=== PATIENT | female | born 1990 | race Caucasian/White ===

== ENCOUNTER 2019-10-22 19:24 | Outpatient (CLI) | payer SELFPAY ==
[~2019-10-22] VITALS: Ht 165.1 cm; Wt 70.3 kg
[2019-10-22 19:50] LABS: BILIRUBIN NEGATIVE (NEGATIVE); GLUCOSE NEGATIVE (NEGATIVE); KETONE LARGE mg/dL (NEGATIVE); NITRITE NEGATIVE (NEGATIVE); UROBILINOGEN NORMAL (NORMAL)
[2019-10-22 19:51] LABS: EPITHELIAL CELLS 0-5 /hpf (0-5); RED CELLS - URINE OCC /hpf (0-5); WHITE CELLS - URINE 0-5 /hpf (NEGATIVE)
[2019-10-22 19:52] LABS: BACTERIA FEW /hpf (NEGATIVE)
[2019-10-22 20:07] LABS: UDS - AMPHET NEGATIVE QUAL (NEGATIVE); UDS - BARB NEGATIVE QUAL (NEGATIVE); UDS - BENZO NEGATIVE QUAL (NEGATIVE); UDS - COCAINE NEGATIVE QUAL (NEGATIVE); UDS - OPIATE NEGATIVE QUAL (NEGATIVE); UDS - PCP NEGATIVE QUAL (NEGATIVE); UDS - THC NEGATIVE QUAL (NEGATIVE)
[2019-10-22 20:37] LABS: HEMATOCRIT 40.2 % (36.0-48.0); HEMOGLOBIN 13.7 g/dL (12-16); MCH 32.4 pg (26.0-34.0); MCHC 34.1 g/dL (31.0-37.0); MEAN PLATELET VOLUME 11.9 fL (7.4-10.4); RBC 4.23 10x6/uL (4.00-5.40); WBC 12.4 10x3/uL (4.8-10.8)
[2019-10-22] MEDS ORDERED: ZOFRAN4 MG PO (20:45)
[2019-10-22] MEDS ORDERED: PRENAVITE1 TAB PO (20:46)
[2019-10-22] MEDS ORDERED: OMEPRAZOLE20 M1 PO (20:47)
[2019-10-22 21:04] VITALS: BP 123/58; Ht 165.1 cm; Wt 70.3 kg
[2019-10-24 07:13] LABS: RAPID PLASMA REAGIN Non Reactive (Non Reactive)
[2019-10-24 08:11] LABS: HEPATITIS C ANTIBODY <0.1 S/CO RAT (0.0-0.9)
== END 2019-10-22 22:13 | disposition home or self-care (01) ==
LOC: D.LDO 19:24
PROVIDERS: ATTEND Obstetrics & Gynecology
DX: O26.893 Other specified pregnancy related conditions, third trimester (principal); Z3A.35 35 weeks gestation of pregnancy; N85.8 Other specified noninflammatory disorders of uterus

== ENCOUNTER 2019-10-24 10:34 | Outpatient (CLI) | payer SELFPAY ==
[~2019-10-24 10:34] MED LIST: OMEPRAZOLE20 M1 PO; PRENAVITE1 TAB PO; ZOFRAN4 MG PO
[2019-10-24 11:31] LABS: UDS - AMPHET NEGATIVE QUAL (NEGATIVE); UDS - BARB NEGATIVE QUAL (NEGATIVE); UDS - BENZO NEGATIVE QUAL (NEGATIVE); UDS - COCAINE NEGATIVE QUAL (NEGATIVE); UDS - OPIATE NEGATIVE QUAL (NEGATIVE); UDS - PCP NEGATIVE QUAL (NEGATIVE); UDS - THC NEGATIVE QUAL (NEGATIVE)
[2019-10-24 12:09] LABS: AMORPHOUS SEDIMENT <1+ /lpf (NONE SEEN); BACTERIA FEW /hpf (NEGATIVE); BILIRUBIN NEGATIVE (NEGATIVE); EPITHELIAL CELLS 0-5 /hpf (0-5); GLUCOSE NEGATIVE (NEGATIVE); KETONE LARGE mg/dL (NEGATIVE); NITRITE NEGATIVE (NEGATIVE); RED CELLS - URINE 0-5 /hpf (0-5); SPECIFIC GRAVITY 1.025 (1.005-1.020); UROBILINOGEN NORMAL (NORMAL); WHITE CELLS - URINE 0-5 /hpf (NEGATIVE)
[2019-10-24 12:10] LABS: GRANULAR CAST 0-5 /lpf (NONE SEEN); HYALINE CAST RARE /lpf (NONE SEEN)
== END 2019-10-24 14:13 | disposition home or self-care (01) ==
LOC: D.LDO 10:34
PROVIDERS: ATTEND Obstetrics & Gynecology
DX: O26.893 Other specified pregnancy related conditions, third trimester (principal); Z3A.35 35 weeks gestation of pregnancy; R10.9 Unspecified abdominal pain; N85.8 Other specified noninflammatory disorders of uterus

== ENCOUNTER 2019-10-30 15:19 | Outpatient (CLI) | payer SELFPAY ==
[2019-10-30 17:42] LABS: BASOPHILS 0.1 % (0-2); EOSINOPHILS 0.3 % (0-7); HEMATOCRIT 38.7 % (36.0-48.0); HEMOGLOBIN 13.5 g/dL (12-16); IMMATURE GRANULOCYTES 0.3 % (0-5); LYMPHOCYTES 27.4 % (15-50); MCHC 34.9 g/dL (31.0-37.0); MCV 91.7 fL (80.0-100.0); MONOCYTES 6.6 % (2-11); NEUTROPHILS 65.3 % (40-80); RBC 4.22 10x6/uL (4.00-5.40); RDW 14.2 % (11.5-14.5); WBC 9.4 10x3/uL (4.8-10.8)
[2019-10-30 17:44] LABS: PLATELET COUNT 249 10x3/uL (130-400)
[2019-10-30 18:03] LABS: ALBUMIN 2.7 g/dL (3.4-5.0); ANION GAP 14.3 mmol/L (8-16); BILIRUBIN - DIRECT 0.23 mg/dL (0.00-0.30); BILIRUBIN - INDIRECT 0.38 mg/dL (0.00-1.00); BILIRUBIN - TOTAL 0.61 mg/dL (0.2-1.3); CALCIUM 8.5 mg/dL (8.5-10.1); CARBON DIOXIDE 21.2 mmol/L (21.0-32.0); CREATININE - SERUM 1.1 mg/dL (0.6-1.3); PROTEIN - SERUM 6.4 g/dL (6.4-8.2); URIC ACID 7.8 mg/dL (2.6-7.2)
[2019-10-30 18:15] LABS: POTASSIUM - SERUM 2.5 mmol/L (3.5-5.1)
[2019-10-30 21:31] VITALS: BP 146/82
[2019-10-30 23:35] VITALS: BP 123/75
[2019-10-31 01:38] VITALS: BP 124/77
[2019-10-31 04:30] VITALS: BP 119/75
[2019-10-31 10:00] VITALS: BP 127/82
[2019-10-31 12:07] LABS: ALBUMIN 2.4 g/dL (3.4-5.0); ALKALINE PHOSPHATASE 189 U/L (30-120); ALT (SGPT) 38 U/L (10-68); BILIRUBIN - TOTAL 0.54 mg/dL (0.2-1.3); CALC OSMOLALITY 268 mosm/kg (275-300); CALCIUM 8.1 mg/dL (8.5-10.1); CARBON DIOXIDE 22.1 mmol/L (21.0-32.0); CHLORIDE - SERUM 104 mmol/L (98-107); CREATININE - SERUM 0.8 mg/dL (0.6-1.3); GLUCOSE 98 mg/dL (74-106); POTASSIUM - SERUM 3.2 mmol/L (3.5-5.1); PROTEIN - SERUM 5.7 g/dL (6.4-8.2); SODIUM 136 mmol/L (136-145); UREA NITROGEN 3 mg/dL (7-18); eGFR NON AFRICAN AMERICAN 89 mL/min (90-120)
[2019-10-31 12:08] LABS: BASOPHILS 0.2 % (0-2); EOSINOPHILS 0.5 % (0-7); HEMATOCRIT 36.5 % (36.0-48.0); HEMOGLOBIN 12.6 g/dL (12-16); IMMATURE GRANULOCYTES 0.6 % (0-5); LYMPHOCYTES 36.1 % (15-50); MCH 32.1 pg (26.0-34.0); MCHC 34.5 g/dL (31.0-37.0); MCV 93.1 fL (80.0-100.0); MEAN PLATELET VOLUME 12.3 fL (7.4-10.4); MONOCYTES 9.4 % (2-11); NEUTROPHILS 53.2 % (40-80); PLATELET COUNT 235 10x3/uL (130-400); RBC 3.92 10x6/uL (4.00-5.40); RDW 14.3 % (11.5-14.5)
[2019-10-31 12:15] LABS: WBC 6.4 10x3/uL (4.8-10.8)
[2019-10-31 16:00] VITALS: BP 121/76
[2019-10-31 16:27] LABS: PROTEIN - URINE 18.2 mg/dL (0.0-11.9)
== END 2019-10-31 17:00 | disposition home or self-care (01) ==
LOC: D.LDO 15:19 → D.LD 20:29 → D.LDO 10-31 17:00
PROVIDERS: Obstetrics & Gynecology; ATTEND Obstetrics & Gynecology
DX: O16.3 Unspecified maternal hypertension, third trimester (principal); Z3A.36 36 weeks gestation of pregnancy; R82.4 Acetonuria

== ENCOUNTER 2019-11-02 16:19 | Outpatient (CLI) | payer SELFPAY | END 2019-11-02 16:20 | disposition home or self-care (01) | LOC: D.LDO 16:19 | PROVIDERS: ATTEND Obstetrics & Gynecology | DX: O26.893 Other specified pregnancy related conditions, third trimester (principal); Z3A.36 36 weeks gestation of pregnancy ==

== ENCOUNTER 2019-11-03 15:42 | Outpatient (CLI) | payer MEDICAID ==
[2019-11-03 16:38] LABS: BILIRUBIN NEGATIVE (NEGATIVE); GLUCOSE NEGATIVE (NEGATIVE); KETONE NEGATIVE (NEGATIVE); NITRITE NEGATIVE (NEGATIVE); SPECIFIC GRAVITY 1.015 (1.005-1.020); UROBILINOGEN NORMAL (NORMAL)
== END 2019-11-03 18:00 | disposition home or self-care (01) ==
LOC: D.LDO 15:42
PROVIDERS: ATTEND Obstetrics & Gynecology
DX: O26.893 Other specified pregnancy related conditions, third trimester (principal); Z3A.37 37 weeks gestation of pregnancy; M54.5 Low back pain; M25.552 Pain in left hip; M25.551 Pain in right hip

== ENCOUNTER 2019-11-07 08:33 | Outpatient (CLI) | payer MEDICAID | END 2019-11-07 09:49 | LOC: D.LDO 08:33 | PROVIDERS: ATTEND Obstetrics & Gynecology | DX: O09.33 Supervision of pregnancy with insufficient antenatal care, third trimester (principal); Z3A.37 37 weeks gestation of pregnancy ==

== ENCOUNTER 2019-11-08 08:02 | Outpatient (CLI) | payer MEDICAID | END 2019-11-08 09:03 | disposition home or self-care (01) | LOC: D.LDO 08:02 | PROVIDERS: ATTEND Obstetrics & Gynecology | DX: O36.8130 Decreased fetal movements, third trimester, not applicable or unspecified (principal); Z3A.37 37 weeks gestation of pregnancy; N85.8 Other specified noninflammatory disorders of uterus ==

== ENCOUNTER 2019-11-15 05:06 | Inpatient (IN) | payer MEDICAID ==
[~2019-11-15] VITALS: Ht 152.4 cm; Wt 73.8 kg
[2019-11-15] VITALS (9 sets, daily range): BP systolic 121–147; BP diastolic 63–86; Ht 152.4 cm; Wt 73.8 kg
--- NOTE | ~2019-11-15 | OP ---
PATIENT NAME: YOANDY CHEUNG MEDICAL RECORD: [id number] :89 LOCATION:[id number] ADMISSION DATE:11/15/19 SURGEON: BRYAN LEE MD DATE OF OPERATION: 11/15/2019 PREOPERATIVE DIAGNOSES: 1. History of previous section times 2. 2. Term intrauterine at 39 weeks. POSTOPERATIVE DIAGNOSES: 1. History of previous section times 2. 2. Term intrauterine at 39 weeks. PROCEDURE: A repeat low transverse section. SURGEON: Bryan Lee MD ANESTHESIA: Regional via spinal. INTRAVENOUS FLUIDS: Per anesthesia record. ESTIMATED BLOOD LOSS: 1000 cc. SPECIMENS: Included placenta and cord for gases. FINDINGS: 1. Viable , Apgars 9 at 1 and 9 at 5. 2. Placenta delivered manually intact, 3-vessel cord noted. 3. Normal adnexa bilaterally. COMPLICATIONS: None apparent. PROCEDURE IN DETAIL: The patient was taken to the operating room where regional anesthesia was achieved without difficulty. The patient was then prepped and draped in normal sterile fashion in the dorsal supine position. SCDs were on and functioning normally. Following prep and drape, a repeat Pfannenstiel skin incision was made and extended downward to the underlying subcutaneous fat to level of the fascia. The fascia was then excised in the midline with scalpel and extended bilaterally using the Harley scissors. The superior and inferior aspect of the fascial incision were grasped with Amelia clamps times 2, tented upward, and sharply dissected from the underlying rectus muscle using the Bovie cautery and the Harley scissors. Rectus muscles were then bluntly in the midline, peritoneum identified and entered sharply at the superior aspect of the incision using the Metzenbaum scissors. Once the intraperitoneal placement was confirmed, further dissection downward of the peritoneum was performed using the Metzenbaum scissors. A bladder blade was then placed into the pelvis and a bladder flap was created by excising the anterior leaf of broad ligament across the lower uterine segment and several bladder adhesions were taken down using the Metzenbaum scissors. A low transverse incision was made with scalpel and extended using the Pelosi method. An Allis clamp was then used to rupture the bag of water and the vertex was delivered atraumatically followed by the body. Infant was then bulb suctioned upon delivery. Cord was clamped times 2, cut, and the was handed to awaiting nursery team. A section of cord was then clamped and cut for cord gases, placenta was then removed manually intact. Uterus was exteriorized, cleared of all clots and debris and vigorously OPERATIVE REPORT [id number] YOANDY CHEUNG massaged. A good uterine tone was noted. The uterine incision was repaired with 0 Vicryl in a running locked fashion times 2 with good hemostasis noted. Posterior cul-de-sac was then thoroughly irrigated and the uterus was returned to the pelvis and anterior cul-de-sac was then thoroughly irrigated and good hemostasis was again noted from the uterine incision. Counts were correct times 2 for needles, sponges, and instruments and the fascia was repaired with 0 loop PDS times 1 and skin repaired with kuldip. The patient tolerated the procedure well, transferred to postanesthesia recovery stable without incident. TRANSINT:[id number] Voice Confirmation ID: [id number] DOCUMENT ID: [id number] BRYAN LEE MD CC: [id number] DICTATION DATE: 11/19/19610 BROACHER: 11/19/19 1749 DIS IN 11/16/19 [facility] [address] [place] [address]
[2019-11-15 06:05] LABS: HEMATOCRIT 39.4 % (36.0-48.0); HEMOGLOBIN 13.2 g/dL (12-16); MCHC 33.5 g/dL (31.0-37.0); MCV 95.6 fL (80.0-100.0); RBC 4.12 10x6/uL (4.00-5.40); RDW 15.3 % (11.5-14.5); WBC 12.4 10x3/uL (4.8-10.8)
[2019-11-15 06:19] LABS: UDS - AMPHET NEGATIVE QUAL (NEGATIVE); UDS - BARB NEGATIVE QUAL (NEGATIVE); UDS - BENZO NEGATIVE QUAL (NEGATIVE); UDS - COCAINE NEGATIVE QUAL (NEGATIVE); UDS - OPIATE NEGATIVE QUAL (NEGATIVE); UDS - PCP NEGATIVE QUAL (NEGATIVE); UDS - THC NEGATIVE QUAL (NEGATIVE)
--- NOTE | 2019-11-15 10:00 | NUR ---
RECEIVED BY BED FROM RECOVERY, PT IS AWAKE AND ALERT, SHE RATES HER PAIN AT 6/10, FUNDUS FIRM AT U/2 WITH SCANT BLEEDING AND NO CLOTS WITH MASSAGE, BIKINI INCISION COVERED WITH LARGE WHITE BANDAGE THAT IS CLEAN AND DRY, ICE PACK APPLIED. IV TO RIGHT HAND INFUSING PER ORDERS, DILAUDID PEDIATRIC SOCIAL WORKER STARTED WITH VERBAL INSTRUCTIONS ON USE GIVEN AND PT DEMONSTRATES HER UNDERSTANDING. SALINE LOCK NOTED TO LEFT HAND. PITTMAN CATH TO BEDSIDE DRAIN WITH 150ML CLEAR URINE NOTED. SCD BILAT, PUMP ON. PT DENIES NAUSEA AT THIS TIME, SMALL ICE WATER AND ICE CHIPS PROVIDED. SIDE RAILS UP X 2 WITH CALL LIGHT IN REACH.
--- NOTE | 2019-11-15 10:40 | NUR ---
THIS RN ROOM FOR PT CHECK. PT SITTING UP IN BED, HOLDING , AND TALKING WITH SIG OTHER. PT STATES SHE IS STARTING TO HURT "A LITTLE MORE" AND JUST PRESSED HER PARTS SALES ASSOCIATE BUTTON. FF, ML, U/U. SMALL RUBRA LOCHIA WITH 1 QUARTER SIZED CLOT NOTED ON PERIPAD. NO FURTHER CLOTS EXPELLED WITH FUNDAL MASSAGE. PERIPAD CHANGED. PT PROVIDED WITH SPRITE AND CUP OF ICE PER REQUEST, DENIES FURTHER NEEDS. PT INSTRUCTED TO CALL OUT ESTHETICS INSTRUCTOR LIGHT IF SHE FEELS DROWSY SO CAN BE PLACED IN [place]. UNDERSTANDING VERBALIZED. SRUx2, CL IN REACH. WILL CONT TO MONITOR.
--- NOTE | 2019-11-15 11:55 | NUR ---
FUNDUS FIRM AT U/1, NO CLOTS NOTED WITH MASSAGE AND LIGHT BLEEDING. NEW ICE PACK TO INCISION, PT RATES PAIN 5/10 BUT STATES SHE HAS BEEN NAPPING AND HAS NOT USED HER UPHOLSTERER LIMOUSINE AND HEARSE, ENCOURAGED HER USE WHEN AWAKE. 125ML CLEAR URINE NOTED TO PITTMAN COLLECTION CANISTER. DENIES NEEDS. CALL LIGHT IN REACH, INFANT IN CRIB AT BEDSIDE AND SPOUSE PRESENT.
--- NOTE | 2019-11-15 12:30 | NUR ---
LARGE CUP OF ICE PER REQUEST.
--- NOTE | 2019-11-15 13:00 | NUR ---
FUNDUS FIRM AT U/1 WITH LIGHT BLEEDING AND NO CLOTS WITH MASSAGE, RATES PAIN AT 2/10 AND MOVES SELF WELL FROM SIDE TO SIDE. UNDERPAD/CHUX/TOWELS CHANGED AND CÉSAR/PITTMAN CARE PER THIS RN. NEW ICE PACK TO INCISION. IN CRIB AT BEDSIDE. SIDE RAILS UP X 2 WITH CALL LIGHT IN REACH.
[2019-11-15 13:57] LABS: BASOPHILS 0.1 % (0-2); EOSINOPHILS 0.3 % (0-7); HEMATOCRIT 36.2 % (36.0-48.0); HEMOGLOBIN 12.3 g/dL (12-16); IMMATURE GRANULOCYTES 0.3 % (0-5); LYMPHOCYTES 14.7 % (15-50); MCH 32.8 pg (26.0-34.0); MCV 96.5 fL (80.0-100.0); MEAN PLATELET VOLUME 11.6 fL (7.4-10.4); MONOCYTES 3.5 % (2-11); NEUTROPHILS 81.1 % (40-80); RBC 3.75 10x6/uL (4.00-5.40); RDW 15.3 % (11.5-14.5); WBC 14.5 10x3/uL (4.8-10.8)
[2019-11-15 14:10] LABS: PLATELET COUNT 252 10x3/uL (130-400)
--- NOTE | 2019-11-15 15:30 | NUR ---
CALLED TO ROOM, UPON ENTERING ROOM PT HAS INFANT TO BREAST BUT HOLDING BED SHEET TO HER RIGHT HAND, THERE IS BLOOD ON PT AND HER BEDDING. SHE EXPLAINS THAT IV BECAME CAUGHT IN INFANT BLANKETS AND SHE PULLED IV OUT WITHOUT KNOWING. LIGHT PRESSURE APPLIED TO SITE BRIEFLY THEN COVERED WITH BANDAGE. INFANT PLACED IN CRIB AT BEDSIDE. TOP SHEET AND BLANKET CHANGED, PT GIVEN WARM WET WASH CLOTH THEN GOWN CHANGED AND NEW ICE PACK GIVEN. SALINE LOCK TO LEFT HAND FLUSHED EASILY WITH 5ML OF NS, PITOCIN/WOOD CLUB NECK WHIPPER TUBING CONNECTED AND PUMP RESTARTED. FUNDUS FIRM AT U/1 WITH LIGHT BLEEDING WITHOUT CLOTS. SHE RATES HER PAIN AT 5/10 BUT MOVES EASILY IN BED AND IS ABLE TO TRANSFER INFANT TO AND FROM CRIB WITH NO ASSISTANCE NEEDED. SPOUSE AT BEDSIDE AND CALL LIGHT IN REACH.
--- NOTE | 2019-11-15 16:15 | NUR ---
FUNDUS FIRM AT U/1, LIGHT BLEEDING, NO CLOTS WITH MASSAGE. UNDERPADS/CHUX AND PAD CHANGED. 300ML NOTED TO TOYA CANISTER. PT RESTING ON HER RIGHT SIDE, SIDE RAILS UP X 2 AND CALL LIGHT IS IN HER REACH. INFANT IN CRIB AND SPOUSE SLEEPING AT BEDSIDE.
--- NOTE | 2019-11-15 17:53 | NUR ---
DR DIAZ ON LABOR AND DELIVERY REPORT GIVEN OF PT REQUEST FOR NICOTINE PATCH. PLACES ORDERS. PATCH APPLIED TO RIGHT SHOULDER AREA. LARGE ICE WATER GIVEN AT THIS TIME REQUESTED. NO OTHER NEEDS VOICED.
--- NOTE | 2019-11-15 19:43 | NUR ---
PM ROUNDS MADE, INFORMED PT THAT I WILL BE BACK SHORTLY TO DO ASSESSMENT, AND ADM TORADOL FOR HER PAIN, PT VERBALIZES UNDERSTANDING, IN OPEN CRIB CART AND FOB AT BEDSIDE
--- NOTE | 2019-11-15 20:07 | NUR ---
ASSESSMENT PER FLOW SHEET, VS OBTAINED, IV IN LEFT HAND INTACT WITH NO REDNESS OR EDEMA INFUSING NS WITH PITOCIN AT 125 ML/HR, DILAUDID HAND TOUCH UP PAINTER TO DELIVER 0.2MG/10MIN PER PT'S DEMAND FOR PAIN CONTROL, PT INST ON AND VERBALIZES UNDERSTANDING OF HAND TOUCH UP PAINTER, PT RATES INC PAIN 01/30, PT PUSHES BUTTON AT THIS TIME, FF, ML, U/1, LITE BLEEDING NOTED WITH NO CLOTS, CÉSAR CARE DONE WITH WET WARM WASH CLOTHS, WHITE CHUX AND CÉSAR PAD CHANGED, BIKINI INC WITH DRESSING CDI WITH NO DRAINAGE NOTED, FRESH ICE PACK, PITTMAN CATH INTACT DRAINING DARK YELLOW URINE, ENC TO DRINK PLENTY OF FLUIDS, FRESH H20 SERVED, PT REPORTS FLATUS, SCD'S ON AND WORKING PROPERLY, ADM TORADOL SIVP PER MD ORDERS, SEE EMAR, PT DENIES FURTHER NEEDS
--- NOTE | 2019-11-15 20:44 | NUR ---
SANDWICH TRAY SERVED TO FOB
--- NOTE | 2019-11-15 21:43 | NUR ---
PT AROUSES TO OPENING OF DOOR, RESTING, RATES INC PAIN 07/30, BEDDING PROVIDED TO FOB, PT REQUESTED AND SERVED APPLE JUICE, DENIES FURTHER NEEDS
--- NOTE | 2019-11-15 22:31 | NUR ---
PT HOLDING INFANT, CONTINUES TO RATE PAIN 3/10, STATES "I FEEL SO MUCH BETTER", SCD'S CONTINUE ON AND WORKING PROPERLY, DENIES NEEDS AT THIS TIME, FOB AT BEDSIDE
--- NOTE | 2019-11-15 23:14 | NUR ---
PT CHANGING INFANTS DIAPER, NEW VIAL OF DILAUDID TO UTILITY SYSTEMS REPAIRER OPERATOR, PT REPORTS PAIN IS STILL A 3/10, INFORMED PT THAT I WILL BE BACK SHORTLY TO DO VS AND CÉSAR CARE, PT VERBALIZES UNDERSTANDING, DENIES NEEDS AT THIS TIME
[2019-11-16 00:20] VITALS: BP 145/61
--- NOTE | 2019-11-16 00:20 | NUR ---
PT AWAKE, HOLDING , TO FOB'S ARMS AT THIS TIME, VS OBTAINED, CÉSAR CARE DONE WITH WET WARM WASH CLOTHS, LITE BLEEDING NOTED WITH NO CLOTS, WHITE CHUX AND CÉSAR PAD CHANGED, FRESH ICE PACK TO ABD, PITTMAN CATH EMPTIED, PT INST ON AND DEMONSTRATED I.S. WITH GOOD EFFORT, SCD'S CONTINUE ON AND WORKING PROPERLY, NEW BAG OF NS WITH PITOCIN HUNG PER MD ORDERS, SEE EMAR, PT DENIES NEEDS AT THIS TIME
--- NOTE | 2019-11-16 02:24 | NUR ---
PT HOLDING INFANT, PT DENIES NEEDS AT THIS TIME, FOB ASLEEP AT BEDSIDE
--- NOTE | 2019-11-16 03:55 | NUR ---
PT VISITOR SERVICE ASSISTANT LIGHT, REQUESTS AIR TO BE ADJ, INFORMED PT THAT I NEEDED TO MOVE THE BELONGINGS FROM ON TOP OF THE AIR CONDITIONER, PT VERBALIZES UNDERSTANDING, INFORMED PT THAT I WILL BE IN AROUND 4:30 TO SEE IF SHE IF FINISHED AND THAT I WILL DO VITALS AND CÉSAR CARE AT THAT TIME, PT VERBALIZES UNDERSTANDING, DENIES FURTHER NEEDS, FOB ASLEEP AT BEDSIDE
[2019-11-16 04:37] VITALS: BP 152/74
--- NOTE | 2019-11-16 04:37 | NUR ---
PT FINISHED , INFANT TO FOB'S ARMS AT THIS TIME, PT CLEANED UP WITH WET WARM WASH CLOTHS, WHITE CHUX AND CÉSAR PAD CHANGED, ICE PACK TO INC, CLEAN TOP SHEET, PUMPS CLEARED, PITTMAN CATH EMPTIED, VS OBTAINED, PT RATES INC PAIN 8-01/30, WILL ADM TORADOL, SCD'S CONTINUE ON AND WORKING PROPERLY
--- NOTE | 2019-11-16 04:47 | NUR ---
ADM TORADOL SIVP PER MD ORDERS, SEE EMAR
--- NOTE | 2019-11-16 06:02 | NUR ---
PT RESTING WITH EYES CLOSED, RESP QUIET, NO DISTRESS NOTED, LEFT UNDISTURBED AT THIS TIME, FOB HOLDING INFANT
[2019-11-16 06:10] LABS: RAPID PLASMA REAGIN Non Reactive (Non Reactive)
[2019-11-16 06:30] LABS: BASOPHILS 0.2 % (0-2); EOSINOPHILS 0.7 % (0-7); HEMATOCRIT 35.1 % (36.0-48.0); HEMOGLOBIN 11.3 g/dL (12-16); IMMATURE GRANULOCYTES 0.4 % (0-5); LYMPHOCYTES 21.6 % (15-50); MCH 31.5 pg (26.0-34.0); MCHC 32.2 g/dL (31.0-37.0); MCV 97.8 fL (80.0-100.0); MEAN PLATELET VOLUME 11.2 fL (7.4-10.4); MONOCYTES 4.5 % (2-11); NEUTROPHILS 72.6 % (40-80); PLATELET COUNT 256 10x3/uL (130-400); RBC 3.59 10x6/uL (4.00-5.40); RDW 15.4 % (11.5-14.5)
--- NOTE | 2019-11-16 07:18 | NUR ---
CALLED TO ROOM WITH COMPLAINT ABOUT PRECEIVED DISRESPECTFULNESS FROM DIETARY STAFF. PT NOR SPOUSE COULD TELL NURSE WHAT STAFF MEMBERS NAME WAS. REQUESTED IF SAME PERSON RETURNS TO UTILITY DRIVER TRAY PLEASE LET NURSE KNOW SO THAT MEDICAL PARASITOLOGIST CAN BE CONTACTED.
--- NOTE | 2019-11-16 07:45 | NUR ---
PITOCIN COMPLETED, NO NEW ORDERS AT THIS TIME TO SALINE LOCK IV, PT ALSO VERBALLY COMPLAINING ABOUT GETTING CLEAR LIQUIDS FOR BREAKFAST AND STATES "I HAD THAT 3 TIMES YESTERDAY I'M NOT EATING IT AGAIN." REASSURED HER THAT WHEN NEW DIET ORDERS ARE RECEIVED NEW BREAKFAST TRAY COULD BE ORDERED. NO OTHER COMPLAINTS, SHE RATES HER PAIN AT 2/10, FUNDUS FIRM AT U/U AND NO CLOTS NOTED WITH MASSAGE. LARGE WHITE BANDAGE REMAINS IN PLACE OVER BIKINI INCISION, BANDAGE IS CLEAN AND DRY. IV TO LEFT HAND IN PLACE AND PT DENIES TENDERNESS AT SITE. SCD BILAT PER ORDER. PITTMAN CATH TO BEDSIDE DRAIN WITH 100ML CLEAR URINE NOTED. PT ABLE TO POSITION HERSELF IN BED AND PLACE TO BREAST, CALL LIGHT IN REACH AND SIG OTHER AT BEDSIDE.
[2019-11-16 08:10] VITALS: BP 148/80
--- NOTE | 2019-11-16 09:15 | NUR ---
PT AND FOB APPEAR TO BE ARGUING, LOUD VOICES NOTED THAT CAN BE HEARD FROM [place]/NURSES DESK. PT BEGINS SCREAMING FOR NURSE, THIS RN TO ROOM WITH DOOR LEFT AJAR. PT IS VISABLY UPSET AND CRYING WHILE FOB IS GATHERING HIS THINGS BUT CONTINUE TO TELL HER SHE CAN NOT KEEP HIS SON FROM HIM AND THAT WHEN SHE GETS DISCHARGED SHE NEEDS TO FIND A NEW PLACE TO LIVE. WHICH UPSETS HER MORE AND THIS CAUSES THEM EACH TO RAISE THEIR VOICES. AT THIS TIME SECURITY IS NOTIFIED AND BOTH OF THEM TOLD THAT THIS WAS DONE, FOB SAYS THAT WAS NOT NECASSARY AND WALKS OFF UNIT. NURSERY NURSE HAD COME TO ROOM FOR INFANT DUE SO THAT THE PEDI COULD ROUND AND WITNESSES ARGUEMENT, AFTER REPORTING THIS TO DR RAMOS, CASE MANAGEMENT CONSULT WAS ORDERED ON INFANT.
--- NOTE | 2019-11-16 10:00 | NUR ---
DR CATHERINE MADE AWARE OF PT SITUATION WITH FOB AND THAT SECURITY WAS CALLED AND REQUEST MADE FOR CASE MANAGEMENT CONSULT. ADVANCE PT PLAN OF CARE PER SET PROTOCOL.
--- NOTE | 2019-11-16 10:08 | NUR ---
IV SALINE LOCKED, PITTMAN CATH REMOVED WITH OUTPUT TOTAL OF 1200ML. PT SITTING UP ON SIDE OF BED WITHOUT COMPLAINT OF NAUSEA OR DIZZINESS. UP TO BATHROOM PER SELF AND VOIDS 100ML, PT STATES SHE FEELS PRESSURE LIKE SHE NEEDS TO HAVE A BOWEL MOVEMENT, REINFORCED THAT SHE DOES NOT NEED TO BEAR DOWN. CÉSAR CARE PER SELF WITH GOWN CHANGED, MESH BRIEFS AND CÉSAR PAD IN PLACE. PT UP WALKING ABOUT ROOM WITHOUT COMPLAINT, RATES HER PAIN AT 3/10. NURSERY CALLED TO ROOM PER PT REQUEST.
--- NOTE | 2019-11-16 10:42 | NUR ---
DR CATHERINE AT BEDSIDE TALKING WITH PATIENT ABOUT CONTINUE PLAN OF CARE.
--- NOTE | 2019-11-16 11:18 | NUR ---
AMBULATORY IN HALLS AND SHOWN NURSERY ACCESS.
--- NOTE | 2019-11-16 11:28 | NUR ---
PT AMB BACK TO ROOM WITH IN CRIB, SHE IS VERBALLY COMPLAINING ABOUT BEING GIVEN A PACIFIER, EXPLAINED THAT SHE HAS TO LET NURSERY KNOW IF SHE DOES NOT WISH FOR INFANT TO BE GIVEN ONE.
--- NOTE | 2019-11-16 12:18 | NUR ---
CALLED TO ROOM, PT STATES THAT SHE HAS GOTTEN IN CONTACT WITH HER AUNT WHO IS WILLING TO COME AND PICK HER AND BABY UP AND SHE WILL BE STAYING WITH THEM THRU THE WEEKEND.
--- NOTE | 2019-11-16 12:45 | NUR ---
AFTER VISITING WITH PATIENT DR RAMOS INQUIRES ABOUT PT DISCHARGE FOR TODAY, STATES THAT SHE IS OK TO GIVE DISCHARGE ORDER. DR CATHERINE NOTIFIED OF THIS.
--- NOTE | 2019-11-16 13:30 | NUR ---
PT UP TO SHOWER WHILE IS IN THE NURSERY. TOWELS PLACED IN BATHROOM AND SHE STATES SHE WILL PUT HER OWN CLOTHING ON. SALINE LOCK REMOVED FROM LEFT HAND WITH CATH NOTED TO BE INTACT. PT UNDERSTAND TO US EMERGENCY CALL LIGHT IF NURSE IF NEEDED.
--- NOTE | 2019-11-16 15:15 | NUR ---
PT COMES BACK FROM NURSERY AND IS CRYING, SHE STATES THAT BECAUSE INFANT COULD BE JAUNDICE ADDITIONAL LABS WOULD BE DONE LATER TODAY. REASSURED HER THAT WAS FOR THIS BEST AND TO KNOW TYPE OF TREATMENT TO BE DONE, IF ANY TREATMENT IS NEEDED. PT THEN WALKS OFF UNIT WITH FOB.
--- NOTE | 2019-11-16 15:50 | NUR ---
MEDICAL RECORDS ON UNIT TO OBTAIN BOTH PARTIES SIGNATURE FOR PATERNTIY.
[2019-11-16] MEDS ORDERED: HYDROCODON-ACE1 EA10 PO (16:47)
[2019-11-16] MEDS ORDERED: MOTRIN600 MG PO (16:48)
--- NOTE | 2019-11-16 19:06 | NUR ---
VERBAL AND WRITTEN DISCHARGE GONE OVER WITH PT, SHE IS GIVEN WRITTEN SCRIPTS FOR NORCO 10/325MG AND MOTRIN 600MG. DENIES QUESTIONS OR CONCERNS. PT IS AWAITING LAB RESULTS FOR INFANT DISCHARGE TO BE COMPLETED.
== END 2019-11-16 19:08 | disposition home or self-care (01) | DRG 787 ==
LOC: D.LD 05:06 → D.WS 05:06 → D.SDCHOLD 07:30 → D.WS 09:04
PROVIDERS: ADMIT Obstetrics & Gynecology; ATTEND Obstetrics & Gynecology
PROC: 10D00Z1 Extraction of Products of Conception, Low, Open Approach (ICD-10-PCS; principal; 2019-11-15 07:30)
DX: O34.219 Maternal care for unspecified type scar from previous cesarean delivery (principal); O10.92 Unspecified pre-existing hypertension complicating childbirth; Z3A.38 38 weeks gestation of pregnancy; Z37.0 Single live birth; O99.334 Smoking (tobacco) complicating childbirth; F17.200 Nicotine dependence, unspecified, uncomplicated